=== PATIENT | female | born 1965 | race Asian ===

== ENCOUNTER 2020-09-28 17:18 | Emergency (ER) | payer OTHER, BC ==
[~2020-09-28] VITALS: Ht 162.6 cm; Wt 68.0 kg
[2020-09-28 17:25] VITALS: BP 147/98
--- NOTE | 2020-09-28 17:50 | NUR ---
swab done and sent to lab
--- NOTE | 2020-09-28 17:51 | NUR ---
Patient discharged to home in stable condition. Written and verbal after care instructions given. Patient verbalizes understanding of instruction. Pt ambulatory with a steady gait
== END 2020-09-28 17:50 | disposition home or self-care (01) ==
LOC: ER 17:27
DX: Z20.828 Contact with and (suspected) exposure to other viral communicable diseases (principal)
CPT/HCPCS: 99283; C9803; U0003